=== PATIENT | female | born 1995 | race Two or more races ===

== ENCOUNTER → 2020-08-06 | Outpatient (CLI) | payer OTHER ==
[~2020-08-06] MED LIST: D3 + K2 DOTS 11 EACH PO; PERCOCET 5-3251 EACH PO
== END | disposition home or self-care (01) ==
LOC: SONOGRAMA 09:57
PROVIDERS: ATTEND Pathology Anatomic Pathology & Clinical Pathology
DX: E04.2 Nontoxic multinodular goiter (principal)

== ENCOUNTER 2020-11-14 06:23 | Day surgery (SDC) | payer OTHER ==
[~2020-11-14 06:23] MED LIST changes: -PERCOCET 5-3251 EACH PO
[2020-11-14] MEDS ORDERED: PERCOCET 5-3251 EACH PO (11:01)
== END 2020-11-14 14:00 | disposition home or self-care (01) ==
LOC: CIR.AMB 06:23
PROVIDERS: ATTEND Surgery
DX: C73 Malignant neoplasm of thyroid gland (principal); Z20.822 Contact with and (suspected) exposure to COVID-19